=== PATIENT | female | born 1995 | race Caucasian/White ===

== ENCOUNTER 2020-02-15 21:25 | Emergency (ER) | payer OTHER ==
[~2020-02-15] VITALS: Ht 152.4 cm; Wt 57.4 kg
[2020-02-15] MEDS ORDERED: ONDANSETRON 4MG/2ML VIAL IV ONE (22:15)
[2020-02-15] MEDS ORDERED: NS 1,000 ML IV ONE (22:15)
[2020-02-15] MEDS ORDERED: KETOROLAC 30 MG/ML 1ML VIAL IV ONE (22:15)
[2020-02-15 22:48] LABS: BASO % 0.3 % (0.0-1.0); EOS # 0.1 10^3/uL (0.0-0.5); EOS % 0.9 % (0.0-3.0); HEMATOCRIT 35.7 % (36.0-47.0); HEMOGLOBIN 12.2 g/dl (12.0-15.5); LYMPH # 1.7 10^3/uL (1.5-5.0); LYMPH % 25.5 % (24.0-44.0); MEAN CORPUSCULAR HEMOGLOBIN 27.9 pg (27.0-33.0); MEAN CORPUSCULAR HGB CONC 34.2 g/dl (32.0-36.5); MEAN CORPUSCULAR VOLUME 81.7 fl (80.0-96.0); MONO # 0.7 10^3/uL (0.0-0.8); MONO % 10.3 % (0.0-5.0); NEUTROPHILS # 4.2 10^3/uL (1.5-8.5); NEUTROPHILS % 62.9 % (36.0-66.0); PLATELET COUNT, AUTOMATED 204 10^3/uL (150-450); RED BLOOD COUNT 4.37 10^6/uL (4.00-5.40); WHITE BLOOD COUNT 6.7 10^3/uL (4.0-10.0)
--- NOTE | 2020-02-15 23:26 | REPVR ---
PROCEDURE INFORMATION: Exam: CT Abdomen And Pelvis Without Contrast Exam date and time: 02/15/2020 11:11 PM Age: 24 years old Clinical indication: Abdominal pain; Flank; Left; Additional info: L flank pain, +uti TECHNIQUE: Imaging protocol: Computed tomography of the abdomen and pelvis without contrast. Radiation optimization: All CT scans at this facility use at least one of these dose optimization techniques: automated exposure control; mA and/or kV adjustment per patient size (includes targeted exams where dose is matched to clinical indication); or iterative reconstruction. COMPARISON: No relevant prior studies available. FINDINGS: Liver: Normal. No mass. Gallbladder and bile ducts: The gallbladder is somewhat contracted with no stones. Pancreas: Normal. No ductal dilation. Spleen: The spleen measures 10.9 cm and is upper normal. Adrenals: Normal. No mass. Kidneys and ureters: Normal. No hydronephrosis. Stomach and bowel: Unremarkable. No obstruction. No mucosal thickening. Appendix: A normal appendix is seen. Intraperitoneal space: Unremarkable. No free air. No significant fluid collection. Vasculature: Unremarkable. No abdominal aortic aneurysm. Lymph nodes: Unremarkable. No enlarged lymph nodes. Bladder: Unremarkable as visualized. Reproductive: Unremarkable as visualized. Bones/joints: Unremarkable. No acute fracture. Soft tissues: Unremarkable. IMPRESSION: Negative CT abdomen/pelvis. No renal or ureteral calculi are evident and there is no evidence of obstructive uropathy. Electronically signed by: Hu Meyer On 02/15/2020 23:26:16 PM
[2020-02-16] MEDS ORDERED: PYRI1TAB5 PO (00:09)
[2020-02-16] MEDS ORDERED: CIPR-249 PO (00:09)
[2020-02-16] MEDS ORDERED: ONDA4TAB6 PO (00:13)
[2020-02-16] MEDS ORDERED: CIPROFLOXACIN 500MG TABLET PO ONE (00:15)
[2020-02-16] MEDS ORDERED: KETOROLAC 30 MG/ML 1ML VIAL IV ONE (00:15)
[2020-02-16] MEDS ORDERED: CIPROFLOXACIN 400 MG in IV 1 EA IV ONE (00:15)
[2020-02-16 00:24] VITALS: BP 100/55
== END 2020-02-16 00:38 | disposition home or self-care (01) ==
LOC: M ED 21:25
DX: N10 Acute pyelonephritis (principal); R10.9 Unspecified abdominal pain; Z88.0 Allergy status to penicillin
CPT/HCPCS: 74176; 80047; 81001; 84702; 85025; 87088; 87186; 96361; 96374; 96375; 99284; J1885; J2405

== ENCOUNTER 2020-07-11 17:02 | Emergency (ER) | payer OTHER ==
[~2020-07-11] VITALS: Ht 152.4 cm; Wt 62.4 kg
[~2020-07-11 17:02] MED LIST: CIPR-249 PO; ONDA4TAB6 PO; PYRI1TAB5 PO
[2020-07-11] MEDS ORDERED: METOCLOPRAMIDE INJ 10MG/2ML VIAL (J2765 PER 1) IV ONE (18:00)
[2020-07-11] MEDS ORDERED: NS 1,000 ML IV ONE (18:00)
[2020-07-11] MEDS ORDERED: ACETAMINOPHEN 500 MG TAB PO ONE (18:00)
[2020-07-11] MEDS ORDERED: diphenhydrAMINE 50MG/ML VIAL (J1200) IM STA (18:00)
[2020-07-11] MEDS ORDERED: diphenhydrAMINE 50MG/ML VIAL (J1200) IV STA (19:07)
[2020-07-11 19:18] LABS: AMPHETAMINES LEVEL URINE NEGATIVE (NEGATIVE); BARBITURATES URINE NEGATIVE (NEGATIVE); BENZODIAZEPINES URINE NEGATIVE (NEGATIVE); CANNABINOIDS URINE POSITIVE (NEGATIVE); COCAINE METABOLITE URINE NEGATIVE (NEGATIVE); METHADONE URINE NEGATIVE (NEGATIVE); OPIATES URINE NEGATIVE (NEGATIVE); PHENCYCLIDINE URINE NEGATIVE (NEGATIVE)
[2020-07-11 19:31] LABS: ALT/SGPT 51 U/L (12-78); BILIRUBIN,DIRECT 0.2 MG/DL (0.0-0.2); BILIRUBIN,TOTAL 0.2 MG/DL (0.2-1.0); BLOOD UREA NITROGEN 11 MG/DL (7-18); CALCIUM LEVEL 9.3 MG/DL (8.5-10.1); CARBON DIOXIDE LEVEL 25 MEQ/L (21-32); CHLORIDE LEVEL 105 MEQ/L (98-107); CREATININE FOR GFR 0.48 MG/DL (0.55-1.30); GLOMERULAR FILTRATION RATE > 60.0 (>60); GLUCOSE, FASTING 80 MG/DL (70-100); HCG, SERUM QUANTITATIVE 59641 MIU/ML; POTASSIUM SERUM 4.3 MEQ/L (3.5-5.1); SODIUM LEVEL 134 MEQ/L (136-145); TOTAL PROTEIN 8.1 GM/DL (6.4-8.2)
[2020-07-11 19:50] LABS: BASO % 0.5 % (0.0-1.0); EOS % 0.6 % (0.0-3.0); HEMATOCRIT 32.3 % (36.0-47.0); HEMOGLOBIN 10.7 g/dl (12.0-15.5); LYMPH # 1.4 10^3/uL (1.5-5.0); LYMPH % 22.2 % (24.0-44.0); MEAN CORPUSCULAR HEMOGLOBIN 27.4 pg (27.0-33.0); MEAN CORPUSCULAR HGB CONC 33.1 g/dl (32.0-36.5); MEAN CORPUSCULAR VOLUME 82.8 fl (80.0-96.0); MONO # 0.6 10^3/uL (0.0-0.8); MONO % 9.4 % (0.0-5.0); NEUTROPHILS # 4.2 10^3/uL (1.5-8.5); NEUTROPHILS % 66.7 % (36.0-66.0); PLATELET COUNT, AUTOMATED 180 10^3/uL (150-450); WHITE BLOOD COUNT 6.3 10^3/uL (4.0-10.0)
--- NOTE | 2020-07-11 20:44 | REPVR ---
PROCEDURE INFORMATION: Exam: US First Trimester, Transabdominal Exam date and time: 07/11/2020 8:15 PM Age: 24 years old Clinical indication: complicated by abdominal or pelvic pain; Generalized abdominal pain; First trimester; Gestational age or lmp: 9; TECHNIQUE: Imaging protocol: Real-time transabdominal obstetrical ultrasound of the maternal pelvis and a first trimester , less than 14 weeks 0 days, with image documentation. COMPARISON: CT ABD PELVIS W/O CONTRAST 02/15/2020 11:04 PM FINDINGS: Gestation: Single live intrauterine gestation. Embryonic/ heart rate: cardiac activity is detected at 175 bpm. Placenta: Unremarkable. No subchorionic bleed. Amniotic fluid: Amniotic fluid is normal for gestational age. BIOMETRY: Gestational age (AUA): Estimated gestational age is 9 weeks and 5 days. Estimated due date (AUA): Estimated date of delivery is 02/08/2021. [place]-Rump length: [place]-rump length measures 2.9 cm. MATERNAL: Uterus: Unremarkable. Cervix: Unremarkable. Right adnexa: Right ovary measures 2.5 by 3.2 x 2.6 cm. Right ovary appears within normal limits. Left adnexa: Left ovary measures 2.8 by 2.5 x 3.0 cm. Left ovary appears within normal limits. Intraperitoneal space: No intraperitoneal free fluid. IMPRESSION: Single live intrauterine gestation measuring 9 weeks and 5 days. Electronically signed by: Moe Villatoro On 07/11/2020 20:44:51 PM
[2020-07-11 20:58] VITALS: BP 111/63
== END 2020-07-11 20:59 | disposition home or self-care (01) ==
LOC: M ED 17:02
DX: O99.891 Other specified diseases and conditions complicating pregnancy (principal); G43.909 Migraine, unspecified, not intractable, without status migrainosus; O99.321 Drug use complicating pregnancy, first trimester; Z3A.09 9 weeks gestation of pregnancy; Z87.59 Personal history of other complications of pregnancy, childbirth and the puerperium; Z88.0 Allergy status to penicillin
CPT/HCPCS: 36415; 76801; 80048; 80076; 80307; 81001; 84702; 85025; 96361; 96374; 96375; 99284; J1200; J2765

== ENCOUNTER → 2020-09-18 | Outpatient (REF) | payer OTHER ==
[2020-09-18 13:25] LABS: HEMATOCRIT 35.7 % (36.0-47.0); HEMOGLOBIN 11.8 g/dl (12.0-15.5); MEAN CORPUSCULAR HEMOGLOBIN 28.2 pg (27.0-33.0); MEAN CORPUSCULAR HGB CONC 33.1 g/dl (32.0-36.5); MEAN CORPUSCULAR VOLUME 85.2 fl (80.0-96.0); PLATELET COUNT, AUTOMATED 168 10^3/uL (150-450); RED BLOOD COUNT 4.19 10^6/uL (4.00-5.40); WHITE BLOOD COUNT 7.2 10^3/uL (4.0-10.0)
[2020-09-18 14:16] LABS: FREE T4 0.78 NG/DL (0.76-1.46)
[2020-09-18 14:33] LABS: CHLAMYDIA DNA AMPLIFICATION NEGATIVE (NEGATIVE); GC DNA AMPLIFICATION NEGATIVE (NEGATIVE)
[2020-09-18 14:42] LABS: HEPATITIS C VIRUS ABY INDEX 0.1 INDEX (<0.8); HIV 1&2 SCREEN CENTAUR NEGATIVE (NEGATIVE)
== END ==
LOC: M PLALAB 09:50
PROVIDERS: ATTEND Advanced Practice Midwife
DX: O34.211 Maternal care for low transverse scar from previous cesarean delivery (principal); Z3A.10 10 weeks gestation of pregnancy
CPT/HCPCS: 36415; 76811; 84439; 84443; 85027; 86762; 86780; 86803; 86850; 86900; 86901; 87086; 87340; 87389; 87491; 87591; G0463

== ENCOUNTER → 2020-09-18 | Outpatient (CLI) | payer OTHER ==
--- NOTE | 2020-09-18 17:53 | REP ---
INDICATION: ANATOMY COMPARISON: 07/11/2020 TECHNIQUE: Transabdominal obstetrical ultrasound with color Doppler evaluation. FINDINGS: Examination demonstrates a single live intrauterine in variable presentation. motion is identified by technologist. Placenta is noted posterior and grade 1 without evidence for placenta previa or abruption. Amniotic fluid volume is normal. Cervix measures 3.2 cm in length and appears closed.. Gestational age by LMP 19 weeks 4 days with STACEY 02/08/2021. Gestational age by current measurements 19 weeks 5 days with STACEY 02/07/2021. FHR equals 150 beats per minute. BPD: 4.7 cm 20 weeks 1 day HC: 16.9 cm 19 weeks 4 days AC: 14.2 cm 19 weeks 4 days FL: 3.2 cm 20 weeks 0 days HL: 2.9 cm 19 weeks 4 days HC/AC: 1.19 Estimated weight 310 grams (57thpercentile). Anatomical assessment demonstrates normal structures including cranium, choroid plexus, cavum, cerebellum/posterior fossa, facial features, lungs, four-chamber heart/ventricular outflow tracts, diaphragm, stomach, cord insertion/three-vessel cord, kidneys/bladder, spine, and extremities. IMPRESSION: Single live intrauterine in variable presentation demonstrating appropriate interval growth. Anatomical assessment is complete and normal. <Electronically signed by Adrián Alicia > 09/18/20 [id number]
== END ==
LOC: M WHC 10:19
PROVIDERS: ATTEND Advanced Practice Midwife
DX: O34.211 Maternal care for low transverse scar from previous cesarean delivery (principal); Z3A.19 19 weeks gestation of pregnancy

== ENCOUNTER → 2020-10-04 | Outpatient (REF) | payer OTHER ==
[2020-10-04 14:47] LABS: HEMATOCRIT 34.2 % (36.0-47.0); HEMOGLOBIN 11.1 g/dl (12.0-15.5); MEAN CORPUSCULAR HGB CONC 32.5 g/dl (32.0-36.5); MEAN CORPUSCULAR VOLUME 86.1 fl (80.0-96.0); PLATELET COUNT, AUTOMATED 187 10^3/uL (150-450); RED BLOOD COUNT 3.97 10^6/uL (4.00-5.40); WHITE BLOOD COUNT 7.6 10^3/uL (4.0-10.0)
[2020-10-04 15:24] LABS: ALBUMIN 3.3 GM/DL (3.2-5.2); ALT/SGPT 32 U/L (12-78); BILIRUBIN,TOTAL 0.1 MG/DL (0.2-1.0); BLOOD UREA NITROGEN 11 MG/DL (7-18); CALCIUM LEVEL 9.1 MG/DL (8.5-10.1); CARBON DIOXIDE LEVEL 25 MEQ/L (21-32); CHLORIDE LEVEL 107 MEQ/L (98-107); CREATININE FOR GFR 0.54 MG/DL (0.55-1.30); GLOMERULAR FILTRATION RATE > 60.0 (>60); GLUCOSE, FASTING 94 MG/DL (70-100); POTASSIUM SERUM 4.2 MEQ/L (3.5-5.1); SODIUM LEVEL 138 MEQ/L (136-145); TOTAL PROTEIN 7.1 GM/DL (6.4-8.2)
== END ==
LOC: M PLALAB 12:30
PROVIDERS: ATTEND Obstetrics & Gynecology
DX: R42 Dizziness and giddiness (principal)

== ENCOUNTER → 2020-10-15 | Outpatient (REF) | payer OTHER | LOC: M PLALAB 17:56 | PROVIDERS: ATTEND Obstetrics & Gynecology | DX: Z3A.23 23 weeks gestation of pregnancy (principal) ==

== ENCOUNTER → 2020-12-25 | Outpatient (REF) | payer OTHER ==
[2020-12-25 13:06] LABS: HEMATOCRIT 34.8 % (36.0-47.0); HEMOGLOBIN 11.4 g/dl (12.0-15.5); MEAN CORPUSCULAR HEMOGLOBIN 28.4 pg (27.0-33.0); MEAN CORPUSCULAR HGB CONC 32.8 g/dl (32.0-36.5); MEAN CORPUSCULAR VOLUME 86.8 fl (80.0-96.0); PLATELET COUNT, AUTOMATED 138 10^3/uL (150-450); RED BLOOD COUNT 4.01 10^6/uL (4.00-5.40)
== END ==
LOC: M PLALAB 09:18
PROVIDERS: ATTEND Obstetrics & Gynecology
DX: Z34.82 Encounter for supervision of other normal pregnancy, second trimester (principal); Z3A.23 23 weeks gestation of pregnancy
CPT/HCPCS: 36415; 82950; 85027; G0463

== ENCOUNTER → 2021-01-10 | Outpatient (REF) | payer OTHER | LOC: M PLALAB 10:31 | PROVIDERS: ATTEND Obstetrics & Gynecology | DX: Z3A.35 35 weeks gestation of pregnancy (principal); Z36.89 Encounter for other specified antenatal screening; Z53.9 Procedure and treatment not carried out, unspecified reason ==

== ENCOUNTER → 2021-01-17 | Outpatient (REF) | payer OTHER ==
[~2021-01-17] MED LIST changes: +FERR325T82 PO; +PRENTAB9 PO; +VITA500C19 PO
== END ==
LOC: M SFHCWAGY 12:59
PROVIDERS: ATTEND Obstetrics & Gynecology
DX: Z36.85 Encounter for antenatal screening for Streptococcus B (principal); Z3A.36 36 weeks gestation of pregnancy

== ENCOUNTER → 2021-01-24 | Outpatient (REF) | payer OTHER ==
[~2021-01-24] MED LIST changes: +DOK1CAP7 PO; +IBUP80TA PO; +MIRA3350 PO; +PERCOCET PO; +SIME180C25 PO
[2021-01-24 13:11] LABS: HEMATOCRIT 34.4 % (36.0-47.0); HEMOGLOBIN 11.2 g/dl (12.0-15.5); MEAN CORPUSCULAR HEMOGLOBIN 28.1 pg (27.0-33.0); MEAN CORPUSCULAR HGB CONC 32.6 g/dl (32.0-36.5); MEAN CORPUSCULAR VOLUME 86.4 fl (80.0-96.0); PLATELET COUNT, AUTOMATED 169 10^3/uL (150-450); RED BLOOD COUNT 3.98 10^6/uL (4.00-5.40); WHITE BLOOD COUNT 7.2 10^3/uL (4.0-10.0)
== END ==
LOC: M PLALAB 10:45
PROVIDERS: ATTEND Advanced Practice Midwife
DX: O99.119 Other diseases of the blood and blood-forming organs and certain disorders involving the immune mechanism complicating pregnancy, unspecified trimester (principal); Z36.89 Encounter for other specified antenatal screening; Z3A.00 Weeks of gestation of pregnancy not specified
CPT/HCPCS: 36415; 85027; G0463

== ENCOUNTER → 2021-01-29 | Outpatient (CLI) | payer OTHER ==
[~2021-01-29] MED LIST changes: -DOK1CAP7 PO; -IBUP80TA PO; -MIRA3350 PO; -PERCOCET PO; -SIME180C25 PO
== END ==
LOC: M LABSMTC 09:47
PROVIDERS: ATTEND Anesthesiology
DX: Z01.812 Encounter for preprocedural laboratory examination (principal); Z20.822 Contact with and (suspected) exposure to COVID-19

== ENCOUNTER 2021-02-03 05:23 | Inpatient (IN) | payer OTHER ==
[2021-02-03] VITALS (8 sets, daily range): BP systolic 112–128; BP diastolic 61–78
[~2021-02-03] VITALS: Ht 152.4 cm; Wt 76.8 kg
[2021-02-03] MEDS ORDERED: CLINDAMYCIN 900 MG in IV 1 EA IV ONE (06:00)
[2021-02-03] MEDS ORDERED: BICITRA 30ML SOLN UDC PO ONE (06:00)
[2021-02-03] MEDS ORDERED: D5W IV ONE (06:00)
[2021-02-03] MEDS ORDERED: GENTAMICIN IV ONE (06:00)
[2021-02-03] MEDS ORDERED: LR 1,000 ML IV ONE (06:05)
[2021-02-03 06:24] LABS: HEMATOCRIT 34.4 % (36.0-47.0); HEMOGLOBIN 11.3 g/dl (12.0-15.5); MEAN CORPUSCULAR HEMOGLOBIN 27.7 pg (27.0-33.0); MEAN CORPUSCULAR HGB CONC 32.8 g/dl (32.0-36.5); MEAN CORPUSCULAR VOLUME 84.3 fl (80.0-96.0); PLATELET COUNT, AUTOMATED 218 10^3/uL (150-450); RED BLOOD COUNT 4.08 10^6/uL (4.00-5.40); WHITE BLOOD COUNT 7.8 10^3/uL (4.0-10.0)
[2021-02-03] MEDS ORDERED: MORPHINE PRES-FREE INJ 10 MG/10 ML VIAL (J2274) As Ordered ONE (06:58)
[2021-02-03] MEDS ORDERED: OXYTOCIN 30 UNITS IN 0.9% NaCl 500ML IV BAG (J2590) As Ordered ONE ×2 (06:59→10:20)
[2021-02-03] MEDS ORDERED: LR 1,000 ML IV SCH ×2 (07:00→10:10)
[2021-02-03] MEDS ORDERED: OXYTOCIN INJ 10 UNITS/ML VIAL (J2590) As Ordered ONE (07:01)
[2021-02-03] MEDS ORDERED: dexameTHASONE 4 MG/ML 1ML VIAL (J1100 PER 1MG) As Ordered ONE (07:01)
[2021-02-03] MEDS ORDERED: ONDANSETRON 4MG/2ML VIAL As Ordered ONE (07:01)
[2021-02-03] MEDS ORDERED: KETOROLAC 60MG 2ML VIAL As Ordered ONE (07:01)
[2021-02-03] MEDS ORDERED: ePHEDrine SULFATE 25 MG/5 ML(5MG/ML) SYRINGE As Ordered ONE (07:02)
[2021-02-03] MEDS ORDERED: PHENYLephrine 500MCG 5ML (100MCG/ML) SYRINGE As Ordered ONE (07:02)
[2021-02-03] MEDS ORDERED: NALBUPHINE HCL 10 MG/ML AMP (J2300) IV PRN (07:48)
[2021-02-03] MEDS ORDERED: METOCLOPRAMIDE INJ 10MG/2ML VIAL (J2765 PER 1) IV PRN ×2 (07:48→10:10)
[2021-02-03] MEDS ORDERED: NALOXONE INJ 0.4MG/1ML VIAL (J2310 PER 1MG) IV PRN ×2 (07:48)
[2021-02-03] MEDS ORDERED: diphenhydrAMINE 50MG/ML VIAL (J1200) IV PRN (07:48)
[2021-02-03] MEDS ORDERED: ONDANSETRON 4MG/2ML VIAL IV PRN ×3 (07:48→10:10)
[2021-02-03] MEDS ORDERED: fentaNYL 100 MCG/2 ML INJECTION (J3010) As Ordered ONE (08:14)
[2021-02-03] MEDS ORDERED: propofoL 200 MG/20 ML VIAL As Ordered ONE ×2 (08:28→08:45)
[2021-02-03] MEDS: PRENATAL VITAMINS CHEWABLE TABLET PO SCH (09:00)
[2021-02-03] MEDS ORDERED: ACETAMINOPHEN 1000MG 100ML IV BTL (OFIRMEV) (J0131 PER 10MG) As Ordered ONE (09:34)
[2021-02-03] MEDS: LR 1,000 ML IV SCH ×2 (09:50→16:58)
[2021-02-03] MEDS ORDERED: SIMETHICONE 80MG CHEW TAB PO PRN (09:50)
[2021-02-03] MEDS ORDERED: MEASLES,MUMPS,RUBELLA VACCINE INJ (MMR-II) (90707) SC SCH (09:50)
[2021-02-03] MEDS ORDERED: PERCOCET 5MG/325MG TAB PO PRN ×2 (09:50→10:10)
[2021-02-03] MEDS ORDERED: OXYTOCIN DRIP 30 UNITS in IV 1 EA IV SCH (09:50)
[2021-02-03] MEDS ORDERED: RHOGAM 300 MCG (1500 IU) INJ (J2790) IM SCH (09:50)
[2021-02-03] MEDS ORDERED: fentaNYL 100 MCG/2 ML INJECTION (J3010) IV PRN (10:10)
[2021-02-03] MEDS ORDERED: IBUPROFEN 800 MG TAB PO SCH (11:00)
--- NOTE | 2021-02-03 11:29 | RO ---
OPERATIVE NOTE DATE OF OPERATION: 02/03/2021 PREOPERATIVE DIAGNOSIS: 1. [place] intrauterine at 39 weeks, 2 days with history of two prior sections. 2. Satisfied parity. 3. GBS positive. 4. Former smoker. 5. 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 POSTOPERATIVE DIAGNOSIS: 1. [place] intrauterine at 39 weeks, 2 days with history of two prior sections. 2. Satisfied parity. 3. GBS positive. 4. Former smoker. 5. 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 PROCEDURE: Repeat low transverse section and [place] bilateral tubal ligation. SURGEON: Evelyn Enriquez MD [employer]IC[employer] MARKER: Bina Cazares CNM ANESTHESIA: INDICATION FOR OPERATION: Erin is a 25-year-old, G4, now P 3-0-1-3, with history of prior sections, desiring repeat at 39 weeks, 2 days. She also stated 100% certainty regarding desire for permanent sterilization which we talked about in the office during her . MATERIAL FORWARDED TO THE LAB FOR EXAMINATION: Segments of bilateral fallopian tubes. DESCRIPTION OF FINDINGS: Female in OA position, Apgars 8 and 9, weight 3830 gm or 8 lb, 7 oz. Normal appearing uterus and fallopian tubes. There was extensive scarring in the subcutaneous layer related to her prior sections. INFECTION CLASSIFICATION: 2. ESTIMATED BLOOD LOSS: 500 mL URINE OUTPUT: 200 mL of clear yellow urine. IV FLUIDS: 1800 mL of lactated Ringer's. DESCRIPTION OF OPERATION: The patient was taken to the operating room. She had reassuring heart rate tracing prior. Spinal anesthesia was administered. Richey catheter and bilateral sequential compression devices were placed. She was prepped and draped in normal sterile fashion in the dorsal supine position with a left lateral tilt. A timeout was performed to confirm patient name, date of , procedure and indication. The team was in agreement. Spinal anesthesia was found to be adequate using an Allis clamp. She received IV clindamycin and gentamicin for preoperative as she has an anaphylactic reaction to penicillin. A Pfannenstiel skin incision was made with the scalpel through the prior scar line, carried through to the underlying layer of fascia. There was scarring consistent with prior sections. The fascia was incised in the midline and the incision was extended laterally with Kee scissors. Superior and inferior aspects of the fascial incision were grasped with Angie clamps, elevated and the underlying rectus muscles were dissected off bluntly and sharply. The peritoneum was entered digitally. The rectus muscles were in the midline. The peritoneal incision was extended superiorly and inferiorly with good visualization of the bladder. A Mobius retractor was inserted. The vesicouterine peritoneum was identified, grasped with pickups, entered sharply with Metzenbaum scissors. Incision was extended laterally and bladder flap created digitally. The lower uterine segment was scored in a transverse fashion with a scalpel. The uterus was entered bluntly. There was copious clear fluid with the incision being extended with traction. The infant's head was elevated to the level of the incision. Fundal pressure was applied. The head was delivered atraumatically in АЛЕКСАНДР position. There was one loose nuchal cord reduced. The anterior shoulder, posterior shoulder and corpus were delivered without difficulty. The nose and mouth were suctioned with bulb suction. Cord was clamped x2 and cut. Infant was handed off to the awaiting team. The placenta was removed with uterine massage and traction on the cord. The uterus was left in situ, clearing of all clot and debris. The uterine incision was repaired with 0 Vicryl suture in a running locking fashion. A second layer of 0 Monocryl was used to close the hysterotomy incision in an imbricating fashion. The uterine incision was inspected. Hemostasis was noted. At that time, we visualized the fallopian tubes without abnormalities. A [place] tubal ligation was performed on the right followed by the left fallopian tube using 0 plain gut suture. Transected portions of the fallopian tubes were sent off to pathology. Gutters were cleared of all clots. The peritoneum was closed using 3-0 Vicryl suture in a running fashion after the Mobius retractor was removed. The rectus muscles did not need any reapproximation. One [id number] stitch using 0 Vicryl suture was placed at the lower aspect where the rectus muscles meet just to reduce an outpouch of redundant peritoneum at that point and that gap was completely addressed with that single [id number]. The fascia was reapproximated with 0 Vicryl suture in a running fashion. The subcutaneous tissue was copiously irrigated. Vincent's fascia was reapproximated using 3-0 Vicryl suture in a running fashion. Skin edges were reapproximated using three inverted interrupted stitches using 3-0 Vicryl suture followed by a running subcuticular stitch using 4-0 Monocryl suture. The incision was cleaned with a wet lap, dried with a dry lap. Steri-Strips were applied in the usual fashion and Optifoam dressing was applied overlying. The vagina was cleared of all blood clot without active bleeding noted. The fundus was firm at U. Sponge, lap and needle counts were correct x2. The procedure was without complications. The patient tolerated the procedure well. She was taken to the recovery room on labor and delivery in stable condition.
[2021-02-03] MEDS ORDERED: KETOROLAC 30 MG/ML 1ML VIAL IV SCH (13:00)
[2021-02-03] MEDS: KETOROLAC 30 MG/ML 1ML VIAL IV SCH ×2 (14:41→21:01)
[2021-02-03] MEDS: DOCUSATE SODIUM 100MG CAPSULE PO SCH (21:00)
[2021-02-04 02:00] VITALS: BP 114/66
[2021-02-04] MEDS: KETOROLAC 30 MG/ML 1ML VIAL IV SCH (02:46)
--- NOTE | 2021-02-04 05:47 | IPNPDOC ---
Progress Note Date of Service: Feb 04, 2021 Day#: 1 Progress Note SUBJECT: Erin is a 25-year-old who had a repeat section with a tubal ligation yesterday. She reports she is doing well. Has voided without any issues. She is ambulating and having a regular diet. States her pain has been well managed. OBJECTIVE: VITAL SIGNS: Within normal limits, afebrile. Alert and oriented times three. Breath sounds clear to auscultation. Abdomen: Fundus firm. Dressing is intact. No erythema surrounding dressing. Minimal lochia. ASSESSMENT: Day 1 postoperative. PLAN: 1. Continue supportive nursing care. 2. Ambulate today. 3. Patient may shower today 4. Saline lock to be removed 5. Anticipate discharge to home tomorrow. VS, I&O, 24H, Fishbone Vital Signs/I&O Vital Signs Date Time Temp Pulse Resp B/P (MAP) Pulse Ox O2 Delivery O2 Flow Rate FiO2 02/04/21 02:00 97.3 78 16 114/66 (82) 97 Room Air I&O- Last 24 Hours up to 6 AM 02/04/21 05:59 Intake Total 3595 ml Output Total 2150 ml Balance 1445 ml Laboratory Data 24H LABS Laboratory Tests 2 02/03/21 06:09: Nucleated Red Blood Cells % (auto) 0.0, Syphilis Serology NONREACTIVE CBC/BMP Laboratory Tests 02/03/21 06:09 TAMELA CERVANTES CNM Feb 04, 2021 05:47
[2021-02-04 06:00] VITALS: BP 109/64
[2021-02-04 06:17] LABS: HEMATOCRIT 28.9 % (36.0-47.0); HEMOGLOBIN 9.5 g/dl (12.0-15.5); MEAN CORPUSCULAR HEMOGLOBIN 28.4 pg (27.0-33.0); MEAN CORPUSCULAR HGB CONC 32.9 g/dl (32.0-36.5); MEAN CORPUSCULAR VOLUME 86.5 fl (80.0-96.0); PLATELET COUNT, AUTOMATED 178 10^3/uL (150-450); RED BLOOD COUNT 3.34 10^6/uL (4.00-5.40)
[2021-02-04] MEDS: PRENATAL VITAMINS CHEWABLE TABLET PO SCH (07:59)
[2021-02-04] MEDS: DOCUSATE SODIUM 100MG CAPSULE PO SCH ×2 (07:59→20:37)
[2021-02-04] MEDS: PERCOCET 5MG/325MG TAB PO PRN ×3 (08:00→20:38)
[2021-02-04] MEDS ORDERED: IBUPROFEN 800 MG TAB PO SCH (09:00)
[2021-02-04 10:00] VITALS: BP 102/53
[2021-02-04] MEDS: IBUPROFEN 800 MG TAB PO SCH ×2 (12:36→19:03)
[2021-02-04] MEDS ORDERED: PERCOCET PO (14:31)
[2021-02-04] MEDS ORDERED: IBUP80TA PO (14:31)
[2021-02-04] MEDS ORDERED: DOK1CAP7 PO (14:31)
[2021-02-04 17:49] VITALS: BP 132/65
[2021-02-04 22:00] VITALS: BP 117/68
[2021-02-05 02:00] VITALS: BP 118/65
[2021-02-05] MEDS: IBUPROFEN 800 MG TAB PO SCH ×2 (03:05→10:11)
[2021-02-05] MEDS: PERCOCET 5MG/325MG TAB PO PRN ×2 (04:43→10:44)
[2021-02-05 06:00] VITALS: BP 122/63
[2021-02-05] MEDS: DOCUSATE SODIUM 100MG CAPSULE PO SCH (09:11)
[2021-02-05] MEDS: PRENATAL VITAMINS CHEWABLE TABLET PO SCH (09:11)
--- NOTE | 2021-02-05 09:11 | IPNPDOC ---
Progress Note Date of Service: Feb 05, 2021 Day#: 2 Progress Note PPD/POD 2 SUBJECT: Erin is a 25yo [id number] s/p uncomplicated RLTCS on 02/03, doing well /post-op day #2. She has been ambulating, voiding spontaneously without issue and tolerating regular diet. Breast feeding without issue. Reports lochia is like a normal period. Pain well controlled. No f/c/n/v/CP/SOB. OBJECTIVE: VITAL SIGNS: Within normal limits, afebrile. Alert and oriented times three. Abdomen: Fundus firm at U-2. Soft, appropriately tender to palpation. Optifoam dressing overlies pfannenstiel incision and is clean/dry/intact Extremities: no pain with palpation of calves Labs: pre-op H/H: 11.3/34.4 post-op H/H: 9.5/28.9 ASSESSMENT: Erin is a 25yo [id number] s/p uncomplicated RLTCS on 02/03, doing well /post-op day #2. Vitals within normal limits, afebrile, hemodynamically stable with no evidence of infection. PLAN: 1. Discharge to home 2. Percocet and Motrin for pain. Colace/Miralax for bowel regimen 3. Encouraged breast feeding and ambulation. 4. Regular diet 5. Discussed return precautions 6. No heavy lifting and vaginal rest 6 weeks 7. Remove optifoam dressing in 1 week and keep clean and dry 8. Follow up in office with Dr. Enriquez in 2 weeks for incision check Evelyn Enriquez MD VS, I&O, 24H, Fishbone Vital Signs/I&O Vital Signs Date Time Temp Pulse Resp B/P (MAP) Pulse Ox O2 Delivery O2 Flow Rate FiO2 02/05/21 06:00 97.8 61 18 122/63 (82) 98 Room Air Evelyn Enriquez MD Feb 05, 2021 09:11
[2021-02-05] MEDS ORDERED: SIME180C25 PO (09:13)
[2021-02-05] MEDS ORDERED: MIRA3350 PO (09:13)
--- NOTE | 2021-02-05 09:18 | DS.PDOC ---
Discharge Summary General Date of Admission Feb 03, 2021 at 05:23 Date of Discharge Feb 05, 2021 Discharge Summary PROCEDURES PERFORMED DURING STAY: repeat low transverse section ADMITTING DIAGNOSES: 1. history of prior section desiring repeat at term DISCHARGE DIAGNOSES: 1. history of prior section desiring repeat at term COMPLICATIONS/CHIEF COMPLAINT: Previous Section Satisfied Fertility. HISTORY OF PRESENT ILLNESS/HOSPITAL COURSE: Erin is a 25yo [id number] s/p uncomplicated RLTCS on 02/03, doing well /post-op day #2. She has had a benign course and at time of discharge, vitals were within normal limits, she was afebrile, hemodynamically stable with no evidence of infection. DISCHARGE MEDICATIONS: Please see below. ALLERGIES: Please see below. PHYSICAL EXAMINATION ON DISCHARGE: VITAL SIGNS: Within normal limits, afebrile. Alert and oriented times three. Abdomen: Fundus firm at U-2. Soft, appropriately tender to palpation. Optifoam dressing overlies pfannenstiel incision and is clean/dry/intact Extremities: no pain with palpation of calves LABORATORY DATA: Please see below. pre-op H/H: 11.3/34.4 post-op H/H: 9.5/28.9 DISPOSITION: home DISCHARGE PLAN/INSTRUCTIONS: 1. Discharge to home 2. Percocet and Motrin for pain. Colace/Miralax for bowel regimen 3. Encouraged breast feeding and ambulation. 4. Regular diet 5. Discussed return precautions 6. No heavy lifting and vaginal rest 6 weeks 7. Remove optifoam dressing in 1 week and keep clean and dry 8. Follow up in office with Dr. Enriquez in 2 weeks for incision check DISCHARGE CONDITION: Stable TIME SPENT ON DISCHARGE: Greater than 20 minutes. Vital Signs/I&Os Vital Signs Date Time Temp Pulse Resp B/P (MAP) Pulse Ox O2 Delivery O2 Flow Rate FiO2 02/05/21 06:00 97.8 61 18 122/63 (82) 98 Room Air Discharge Medications Scheduled Ascorbic Acid (Vitamin C) 500 Mg Capsule.er, 500 MG PO DAILY, (Reported) Docusate Sodium (Dok) 100 Mg Capsule, 100 MG PO BID Ferrous Sulfate (Iron) 325 Mg Tablet, 325 MG PO DAILY, (Reported) Ibuprofen (Ibuprofen) 800 Mg Tablet, 800 MG PO Q8H No.137/Iron/Folic Acd ( Vitamin Tablet) 1 Each Tablet, 1 TAB PO DAILY, (Reported) Scheduled PRN Oxycodone/Acetaminophen (Oxycodone-Acetaminophen 5-325) 1 Each Tablet, 1 TAB PO Q4H PRN for MILD/MODERATE PAIN (PS 1-7) Polyethylene Glycol 3350 (Miralax) 119 Gm Powder, 17 GM PO DAILY PRN for CONSTIPATION dilute in 8 ounces of water or juice Simethicone (Simethicone) 180 Mg Capsule, 1 CAP PO TIDP PRN for GAS PAIN Allergies Coded Allergies: Penicillins (Verified Allergy, Severe, Anaphylaxis, 02/15/20) Evelyn Enriquez MD Feb 05, 2021 09:18
== END 2021-02-05 10:45 | disposition home or self-care (01) | DRG 784 ==
LOC: M LDI 05:23 → M OBS 11:10
PROVIDERS: ADMIT Obstetrics & Gynecology; ATTEND Obstetrics & Gynecology
PROC: 0UB70ZZ Excision of Bilateral Fallopian Tubes, Open Approach (ICD-10-PCS; 2021-02-03)
PROC: 10D00Z1 Extraction of Products of Conception, Low, Open Approach (ICD-10-PCS; principal; 2021-02-03 07:30)
DX: O34.211 Maternal care for low transverse scar from previous cesarean delivery (principal); O98.52 Other viral diseases complicating childbirth; Z37.0 Single live birth; Z3A.39 39 weeks gestation of pregnancy; O99.824 Streptococcus B carrier state complicating childbirth; Z87.891 Personal history of nicotine dependence; Z30.2 Encounter for sterilization; B00.9 Herpesviral infection, unspecified; Z88.0 Allergy status to penicillin

== ENCOUNTER → 2021-03-07 | Outpatient (CLI) | payer OTHER ==
[~2021-03-07] MED LIST changes: +DOK1CAP7 PO; +IBUP80TA PO; +MIRA3350 PO; +PERCOCET PO; +SIME180C25 PO
--- NOTE | 2021-03-07 18:18 | REP ---
INDICATION: . Low back pain COMPARISON: None. TECHNIQUE: AP, lateral, bilateral oblique and coned L5-S1 images of the lumbar spine were performed. FINDINGS: There is minimal levoscoliosis of the lumbar spine. The intervertebral disc spaces are preserved. There are no compression fractures. There is no spondylolisthesis. There is significant stool in the rectal vault and distal colon. IMPRESSION: 1. Minimal levoscoliosis of the lumbar spine which could be due to muscular spasm. 2. Mild constipation. <Electronically signed by Jhonny Lou > 03/07/21 [id number]
--- NOTE | 2021-03-07 18:19 | REP ---
INDICATION: . Dorsalgia COMPARISON: None. TECHNIQUE: Frontal lateral views of the thoracic spine were performed. FINDINGS: There is minimal dextroscoliosis of the thoracic spine. The intervertebral disc spaces are preserved. The thoracic vertebral bodies are normal. The perivertebral soft tissues are unremarkable. IMPRESSION: Minimal dextroscoliosis of the thoracic spine, which could be due to muscular spasm. <Electronically signed by Jhonny Lou > 03/07/21 [id number]
--- NOTE | 2021-03-07 18:21 | REP ---
INDICATION: . Neck pain COMPARISON: None. TECHNIQUE: AP lateral bilateral oblique open-mouth odontoid and flexion and extension lateral views of the cervical spine were performed. FINDINGS: Seven view cervical spine series, including flexion and extension lateral views demonstrates no evidence of fracture. The intervertebral disc spaces are preserved. There is no evidence of spondylolisthesis. There is no evidence of instability with flexion and extension. The perivertebral soft tissues are normal. IMPRESSION: Normal cervical spine. <Electronically signed by Jhonny Lou > 03/07/21 [id number]
== END ==
LOC: M RAD 17:27
PROVIDERS: ATTEND Physician Assistant Medical
DX: M54.9 Dorsalgia, unspecified (principal); M54.2 Cervicalgia